=== PATIENT | male | born 1970 | race Caucasian/White ===

== ENCOUNTER 2017-04-28 15:25 | Emergency (ER) | payer MEDICARE ==
[2017-04-28] MEDS ORDERED: Lidocaine 1% w/Epinephrine 1:100K 20 ML VIAL ONE (15:50)
[2017-04-28] MEDS ORDERED: Lorazepam 1 MG TAB ONE ×2 (16:19→19:34)
[2017-04-28] MEDS ORDERED: Bacitracin Zinc 1 Packet ONE (16:26)
[2017-04-28 16:46] LABS: #Basophils 0.1 thou/uL (0.0-0.2); #Eosinphils 0.1 thou/uL (0.0-0.7); #Lymphocytes 2.9 thou/uL (1.20-3.40); #Monocytes 0.6 thou/uL (0.11-0.59); #Neutrophils 7.5 thou/uL (1.40-6.50); %Basophils 0.8 % (0.0-1.0); %Eosinophils 0.7 % (0.0-10.0); %Lymphocytes 25.9 % (21.0-51.0); %Neutrophils 67.5 % (42.0-75.0); Hemoglobin 15.4 g/dL (14.0-18.0); Mean Corpuscular HGB CONC 34.3 g/dL (32.0-36.0); Mean Corpuscular Volume 99.1 fl (80.0-94.0); Mean Platelet Volume 6.7 fL (7.4-10.4); Platelet Count 431 thou/uL (130-400); RBC Distribution Width 11.9 % (11.5-14.5); Red Blood Cell (RBC) Count 4.52 mill/uL (4.70-6.10); White Blood Cell (WBC) Count 11.1 thou/uL (4.8-10.8)
[2017-04-28 16:48] LABS: Bilirubin Negative (Negative); Blood, Urine Negative (Negative); Clarity CLEAR (Clear); Glucose, Urine (Dipstick) Negative (Negative); Leukocyte Negative (Negative); Nitrite Negative (Negative); Protein, Urine (Dipstick) Negative (Neg-Trace); Urobilinogen 0.2 mg/dL (0.2-1.0)
[2017-04-28 16:59] LABS: Amphetamine Not Detected (NotDetected); Barbiturates Screen Not Detected (NotDetected); Benzodiazepine Screen Detected (NotDetected); Cocaine Metabolite Screen Not Detected (NotDetected); Medtox Control Line Valid? VALID (VALID); Medtox Reader # READER 4; Methadone Not Detected (NotDetected); Methamphetamine Not Detected (NotDetected); Opiate Screen Detected (NotDetected); Oxycodone Screen Not Detected (NotDetected); Phencyclidine (PCP) Not Detected (NotDetected); THC/Cannabinoid Screen Not Detected (NotDetected); Tricyclic Screen Not Detected (NotDetected)
[2017-04-28 17:06] LABS: Acetaminophen Less than 6.0 mcg/mL (10.0-30.0); Alcohol 181 mg/dL (Less than 10); Salicylate Less than 8.0 mg/dL (15.0-30.0)
[2017-04-28 17:07] LABS: ALT (SGPT) 18 U/L (8-55); AST (SGOT) 22 U/L (5-34); Albumin 4.9 g/dL (3.5-5.0); Alkaline Phosphatase 60 U/L (40-150); Anion Gap 15 mmol/L (10-20); BUN (Urea Nitrogen) 15 mg/dL (8.9-20.6); Bilirubin, Total 0.2 mg/dL (0.2-1.2); Calc. Creatinine Clearance 0 mL/min (70-130); Calcium 10.4 mg/dL (7.8-10.44); Carbon Dioxide 23 mmol/L (22-29); Chloride 106 mmol/L (98-107); Estimated GFR-MDRD Greater than 90; Globulin 3.4 g/dL (2.4-3.5); Glucose 162 mg/dL (70-105); Potassium 4.3 mmol/L (3.5-5.1); Protein, Total 8.3 g/dL (6.0-8.3); Sodium 140 mmol/L (136-145)
[2017-04-28] MEDS ORDERED: OLANZapine 5 MG TAB PO SCH (19:45)
[2017-04-28] MEDS ORDERED: Aspirin 325 MG TAB ONE (21:00)
== END 2017-04-29 02:00 | disposition home or self-care (01) ==
LOC: ERS 15:25
DX: S61.512A Laceration without foreign body of left wrist, initial encounter (principal); F10.129 Alcohol abuse with intoxication, unspecified; R45.851 Suicidal ideations; Z79.899 Other long term (current) drug therapy; W29.3XXA Contact with powered garden and outdoor hand tools and machinery, initial encounter
CPT/HCPCS: 12002; 36415; 80053; 80306; 80307; 81003; 85025; J2001

== ENCOUNTER 2018-01-06 06:38 | Emergency (ER) | payer MEDICARE ==
[2018-01-06 08:47] LABS: Bilirubin Negative (Negative); Blood, Urine Negative (Negative); Clarity CLEAR (Clear); Glucose, Urine (Dipstick) Negative (Negative); Leukocyte Negative (Negative); Nitrite Negative (Negative); Protein, Urine (Dipstick) Negative (Neg-Trace); Specific Gravity, Urine 1.013 (1.002-1.036); Urobilinogen 0.2 mg/dL (0.2-1.0); pH, Urine 6.5 (5.0-9.0)
[2018-01-06 08:55] LABS: Medtox Reader # READER 1
[2018-01-06 09:02] LABS: Amphetamine Not Detected (NotDetected); Barbiturates Screen Not Detected (NotDetected); Benzodiazepine Screen Detected (NotDetected); Cocaine Metabolite Screen Not Detected (NotDetected); Medtox Control Line Valid? VALID (VALID); Methadone Not Detected (NotDetected); Methamphetamine Not Detected (NotDetected); Opiate Screen Detected (NotDetected); Oxycodone Screen Not Detected (NotDetected); Phencyclidine (PCP) Not Detected (NotDetected); THC/Cannabinoid Screen Not Detected (NotDetected); Tricyclic Screen Not Detected (NotDetected)
[2018-01-06 09:19] LABS: #Basophils 0.1 thou/uL (0.0-0.2); #Eosinphils 0.3 thou/uL (0.0-0.7); #Lymphocytes 2.5 thou/uL (1.20-3.40); #Neutrophils 9.3 thou/uL (1.40-6.50); %Basophils 0.7 % (0.0-1.0); %Eosinophils 2.4 % (0.0-10.0); %Lymphocytes 18.7 % (21.0-51.0); %Monocytes 7.5 % (0.0-10.0); %Neutrophils 70.7 % (42.0-75.0); Hemoglobin 13.9 g/dL (14.0-18.0); Mean Corpuscular HGB CONC 34.3 g/dL (32.0-36.0); Mean Corpuscular Hemoglobin 33.5 pg (27.0-31.0); Mean Corpuscular Volume 97.6 fL (78.0-98.0); Mean Platelet Volume 7.2 fL (7.4-10.4); Platelet Count 426 thou/uL (130-400); RBC Distribution Width 11.3 % (11.5-14.5); Red Blood Cell (RBC) Count 4.15 mill/uL (4.70-6.10); White Blood Cell (WBC) Count 13.2 thou/uL (4.8-10.8)
[2018-01-06 09:38] LABS: ALT (SGPT) 18 U/L (8-55); AST (SGOT) 19 U/L (5-34); Albumin 4.5 g/dL (3.5-5.0); Alcohol Less than 10 mg/dL (Less than 10); Alkaline Phosphatase 45 U/L (40-150); Anion Gap 15 mmol/L (10-20); BUN (Urea Nitrogen) 21 mg/dL (8.9-20.6); Bilirubin, Total 0.2 mg/dL (0.2-1.2); CK (CPK) 142 U/L (30-200); Calc. Creatinine Clearance 0 mL/min (70-130); Calcium 9.4 mg/dL (7.8-10.44); Carbon Dioxide 22 mmol/L (22-29); Chloride 106 mmol/L (98-107); Estimated GFR-MDRD 80; Glucose 137 mg/dL (70-105); Potassium 3.9 mmol/L (3.5-5.1); Protein, Total 7.5 g/dL (6.0-8.3); Sodium 139 mmol/L (136-145)
[2018-01-06 09:41] LABS: Acetaminophen Less than 6.0 mcg/mL (10.0-30.0); Alcohol Less than 10 mg/dL (Less than 10); Salicylate Less than 8.0 mg/dL (15.0-30.0)
--- NOTE | 2018-01-13 11:18 | EKG ---
Test Reason : Blood Pressure : / mmHG Vent. Rate : 113 BPM Atrial Rate : 113 BPM P-R Int : 122 ms QRS Dur : 088 ms QT Int : 324 ms P-R-T Axes : 025 003 031 degrees QTc Int : 444 ms Sinus tachycardia Moderate voltage criteria for LVH, may be normal variant Borderline ECG No ST elevation/NE Confirmed by PEPE GARCIA M.D. ([id number]), makeup editor JONI CAAL ([id number] on 01/13/2018 11:18:04 AM Referred By: Confirmed By:PEPE GARCIA M.D.
== END 2018-01-06 10:26 | disposition home or self-care (01) ==
LOC: ERS 06:38
DX: F19.10 Other psychoactive substance abuse, uncomplicated (principal)
CPT/HCPCS: 36415; 80053; 80306; 80307; 81003; 82550; 84443; 85025; 93005; 96360

== ENCOUNTER 2019-02-24 14:36 | Emergency (ER) | payer MEDICARE ==
[2019-02-24 15:20] LABS: #Basophils 0.1 thou/uL (0.0-0.2); #Lymphocytes 1.2 thou/uL (1.20-3.40); #Monocytes 0.6 thou/uL (0.11-0.59); #Neutrophils 7.8 thou/uL (1.40-6.50); %Basophils 0.5 % (0.0-1.0); %Eosinophils 0.4 % (0.0-10.0); %Lymphocytes 12.4 % (21.0-51.0); %Monocytes 5.9 % (0.0-10.0); %Neutrophils 80.8 % (42.0-75.0); Hemoglobin 15.8 g/dL (14.0-18.0); Mean Corpuscular Hemoglobin 33.3 pg (27.0-31.0); Mean Corpuscular Volume 95.3 fL (78.0-98.0); Mean Platelet Volume 7.6 fL (7.4-10.4); Platelet Count 383 thou/uL (130-400); RBC Distribution Width 11.3 % (11.5-14.5); Red Blood Cell (RBC) Count 4.73 mill/uL (4.70-6.10); White Blood Cell (WBC) Count 9.7 thou/uL (4.8-10.8)
--- NOTE | 2019-02-24 15:26 | CT ---
CT Brain WO Con History: Seizure Comparison: None. Findings: No acute hemorrhage or infarct. No midline shift or mass effect. Ventricular size and extra -axial CSF spaces are normal. Calvarium is intact. Paranasal sinuses and mastoids are clear. Impression: No acute intracranial abnormality. Left posterior parietal soft tissue contusion.
[2019-02-24 15:40] LABS: ALT (SGPT) 33 U/L (8-55); AST (SGOT) 38 U/L (5-34); Alkaline Phosphatase 62 U/L (40-110); Anion Gap 17 mmol/L (10-20); BUN (Urea Nitrogen) 11 mg/dL (8.4-25.7); Bilirubin, Total 0.7 mg/dL (0.2-1.2); Calc. Creatinine Clearance 0 mL/min (70-130); Calcium 10.3 mg/dL (7.8-10.44); Carbon Dioxide 23 mmol/L (22-29); Chloride 100 mmol/L (98-107); Estimated GFR-MDRD 89; Globulin 2.9 g/dL (2.4-3.5); Glucose 267 mg/dL (70-105); Potassium 3.7 mmol/L (3.5-5.1); Protein, Total 7.9 g/dL (6.0-8.3); Sodium 136 mmol/L (136-145)
[2019-02-24] MEDS ORDERED: Acetaminophen 500 MG TAB ONE (15:57)
[2019-02-24] MEDS ORDERED: Ibuprofen 200 MG TAB ONE (16:18)
[2019-02-24 16:22] LABS: Bacteria/HPF None Seen HPF (None Seen); Bilirubin Negative (Negative); Blood, Urine Negative (Negative); Clarity Clear (Clear); Glucose, Urine (Dipstick) >=1000 mg/dL (Negative); Leukocyte Negative Leu/uL (Negative); Nitrite Negative (Negative); Protein, Urine (Dipstick) 300 mg/dL (Neg-Trace); RBC/HPF 0-3 HPF (0-3); Squamous Epithelial 0-3 HPF (0-3); Urobilinogen Normal mg/dL (Less than 2)
[2019-02-24 16:27] LABS: Mucous/LPF 1+ LPF (<2+); Sperm/HPF 4+ HPF (None Seen)
[2019-02-24 16:33] LABS: Amphetamine Not Detected (NotDetected); Barbiturates Screen Not Detected (NotDetected); Benzodiazepine Screen Detected (NotDetected); Cocaine Metabolite Screen Not Detected (NotDetected); Medtox Control Line Valid? VALID (VALID); Medtox Reader # READER 1; Methadone Not Detected (NotDetected); Methamphetamine Not Detected (NotDetected); Opiate Screen Not Detected (NotDetected); Oxycodone Screen Not Detected (NotDetected); Phencyclidine (PCP) Not Detected (NotDetected); THC/Cannabinoid Screen Detected (NotDetected); Tricyclic Screen Not Detected (NotDetected)
== END 2019-02-24 16:41 ==
LOC: ERS 14:36
DX: R56.9 Unspecified convulsions (principal); I10 Essential (primary) hypertension; F32.9 Major depressive disorder, single episode, unspecified; F17.210 Nicotine dependence, cigarettes, uncomplicated; Z79.899 Other long term (current) drug therapy
CPT/HCPCS: 36415; 70450; 80053; 80306; 81003; 81015; 85025; 93005; 94760

== ENCOUNTER 2020-10-30 16:25 | Emergency (ER) | payer MEDICARE ==
[~2020-10-30 16:25] MED LIST: Iopamidol-370 76% 500 ML 1 ML ONE
[2020-10-30 16:55] LABS: #Basophils 0.1 thou/uL (0.0-0.2); #Eosinphils 0.2 thou/uL (0.0-0.7); #Lymphocytes 2.5 thou/uL (1.20-3.40); #Monocytes 0.7 thou/uL (0.11-0.59); #Neutrophils 5.4 thou/uL (1.40-6.50); %Basophils 1.2 % (0.0-1.0); %Lymphocytes 27.8 % (21.0-51.0); %Monocytes 8.3 % (0.0-10.0); %Neutrophils 60.8 % (42.0-75.0); Hemoglobin 15.5 g/dL (14.0-18.0); Mean Corpuscular HGB CONC 35.2 g/dL (32.0-36.0); Mean Corpuscular Hemoglobin 34.9 pg (27.0-31.0); Mean Corpuscular Volume 99.3 fL (78.0-98.0); Mean Platelet Volume 7.3 fL (7.4-10.4); Platelet Count 421 thou/uL (130-400); RBC Distribution Width 10.9 % (11.5-14.5); Red Blood Cell (RBC) Count 4.45 mill/uL (4.70-6.10); White Blood Cell (WBC) Count 8.8 thou/uL (4.8-10.8)
[2020-10-30 17:13] LABS: ALT (SGPT) 23 U/L (8-55); AST (SGOT) 24 U/L (5-34); Albumin 4.5 g/dL (3.5-5.0); Alkaline Phosphatase 84 U/L (40-110); Anion Gap 16 mmol/L (10-20); BUN (Urea Nitrogen) 9 mg/dL (8.4-25.7); Bilirubin, Total 0.3 mg/dL (0.2-1.2); Calc. Creatinine Clearance 0 mL/min (70-130); Calcium 9.6 mg/dL (7.8-10.44); Carbon Dioxide 24 mmol/L (22-29); Chloride 99 mmol/L (98-107); Globulin 3.1 g/dL (2.4-3.5); Glucose 264 mg/dL (70-105); Lipase 17 U/L (8-78); Potassium 3.1 mmol/L (3.5-5.1); Protein, Total 7.6 g/dL (6.0-8.3); Sodium 136 mmol/L (136-145)
[2020-10-30] MEDS ORDERED: Ketorolac Tromethamine 30 MG/ML VIAL ONE (17:29)
== END 2020-10-30 19:30 | disposition home or self-care (01) ==
LOC: ERS 16:25
DX: S62.522A Displaced fracture of distal phalanx of left thumb, initial encounter for closed fracture (principal); S00.03XA Contusion of scalp, initial encounter; M54.9 Dorsalgia, unspecified; I10 Essential (primary) hypertension; F17.210 Nicotine dependence, cigarettes, uncomplicated; R07.9 Chest pain, unspecified; R10.9 Unspecified abdominal pain; Z79.899 Other long term (current) drug therapy; W17.89XA Other fall from one level to another, initial encounter
CPT/HCPCS: 70450; 71260; 72125; 74177; 80053; 83690; 85025; 93005; 96374; J1885; Q9967

== ENCOUNTER 2021-06-14 15:44 | Emergency (ER) | payer MEDICARE ==
[2021-06-14] MEDS ORDERED: Silver Sulfadiazine 50 GM TUBE ONE (16:18)
[2021-06-14] MEDS ORDERED: Boostrix 0.5 ML (Tdap) VIAL ONE (16:33)
[2021-06-14] MEDS ORDERED: Ketorolac Tromethamine 30 MG/ML VIAL ONE (16:33)
== END 2021-06-14 16:51 | disposition home or self-care (01) ==
LOC: ERS 15:44
DX: T25.221A Burn of second degree of right foot, initial encounter (principal); I10 Essential (primary) hypertension; F17.210 Nicotine dependence, cigarettes, uncomplicated; Z23 Encounter for immunization; X08.8XXA Exposure to other specified smoke, fire and flames, initial encounter
CPT/HCPCS: 16020; 90471; 90715; 96372; J1885

== ENCOUNTER 2022-07-15 22:19 | Emergency (ER) | payer MEDICARE ==
[2022-07-15 23:28] LABS: #Basophils 0.1 thou/uL (0.0-0.2); #Eosinphils 0.1 thou/uL (0.0-0.7); #Lymphocytes 2.7 thou/uL (1.20-3.40); #Monocytes 0.4 thou/uL (0.11-0.59); #Neutrophils 3.6 thou/uL (1.40-6.50); %Basophils 1.1 % (0.0-1.0); %Eosinophils 1.9 % (0.0-10.0); %Lymphocytes 38.7 % (21.0-51.0); %Monocytes 5.6 % (0.0-10.0); %Neutrophils 52.7 % (42.0-75.0); Hemoglobin 14.5 g/dL (14.0-18.0); Mean Corpuscular HGB CONC 34.9 g/dL (32.0-36.0); Mean Corpuscular Hemoglobin 34.3 pg (27.0-31.0); Mean Corpuscular Volume 98.1 fl (78.0-98.0); Platelet Count 411 10x3/uL (130-400); Red Blood Cell (RBC) Count 4.23 mill/uL (4.70-6.10); White Blood Cell (WBC) Count 6.9 10x3/uL (4.8-10.8)
[2022-07-15 23:44] LABS: Acetaminophen Less than 10.0 mcg/mL (10.0-30.0); Alcohol 227 mg/dL (Less than 10); Salicylate Less than 8.0 mg/dL (15.0-30.0)
[2022-07-15 23:46] LABS: ALT (SGPT) 36 U/L (8-55); AST (SGOT) 52 U/L (5-34); Albumin 4.3 g/dL (3.5-5.0); Alkaline Phosphatase 84 U/L (40-110); Anion Gap 19 mmol/L (10-20); BUN (Urea Nitrogen) 8 mg/dL (8.4-25.7); Bilirubin, Total 0.2 mg/dL (0.2-1.2); CK (CPK) 82 U/L (30-200); Calc. Creatinine Clearance 0 mL/min (70-130); Calcium 9.5 mg/dL (7.8-10.44); Carbon Dioxide 20 mmol/L (22-29); Chloride 106 mmol/L (98-107); Estimated GFR 106; Globulin 3.2 g/dL (2.4-3.5); Glucose 205 mg/dL (70-105); Potassium 3.6 mmol/L (3.5-5.1); Protein, Total 7.5 g/dL (6.0-8.3); Sodium 141 mmol/L (136-145)
[2022-07-16 00:08] LABS: Bilirubin Negative (Negative); Blood, Urine Negative (Negative); Clarity Clear (Clear); Glucose, Urine (Dipstick) Normal (Negative); Ketone, Urine Negative (Negative); Leukocyte Negative Leu/uL (Negative); Nitrite Negative (Negative); Protein, Urine (Dipstick) 50 mg/dL (Neg-Trace); RBC/HPF 0-3 HPF (0-3); Specific Gravity, Urine 1.008 (1.002-1.036); Squamous Epithelial None Seen HPF (0-3); Urobilinogen Normal mg/dL (Less than 2); WBC/HPF 0-3 HPF (0-3)
[2022-07-16 00:15] LABS: Bacteria/HPF 1+ HPF (None Seen)
[2022-07-16 00:16] LABS: Amphetamine Not Detected (NotDetected); Barbiturates Screen Not Detected (NotDetected); Benzodiazepine Screen Detected (NotDetected); Cocaine Metabolite Screen Not Detected (NotDetected); Methadone Not Detected (NotDetected); Methamphetamine Not Detected (NotDetected); Opiate Screen Detected (NotDetected); Oxycodone Screen Not Detected (NotDetected); Phencyclidine (PCP) Not Detected (NotDetected); THC/Cannabinoid Screen Detected (NotDetected); Tricyclic Screen Not Detected (NotDetected)
[2022-07-16] MEDS ORDERED: Nicotine 14 MG PATCH ONE (00:28)
[2022-07-16] MEDS ORDERED: Ziprasidone 20 MG CAP ONE (00:28)
== END 2022-07-16 10:32 | disposition home or self-care (01) ==
LOC: ERS 22:19
DX: F10.129 Alcohol abuse with intoxication, unspecified (principal); R45.851 Suicidal ideations; I10 Essential (primary) hypertension; F17.210 Nicotine dependence, cigarettes, uncomplicated; Y90.7 Blood alcohol level of 200-239 mg/100 ml
CPT/HCPCS: 36415; 80053; 80306; 80307; 81003; 81015; 82550; 84443; 85025; 99285

== ENCOUNTER 2022-08-17 17:44 | Emergency (ER) | payer MEDICARE | END 2022-08-17 20:15 | disposition home or self-care (01) | LOC: ERS 17:44 | DX: S22.088A Other fracture of T11-T12 vertebra, initial encounter for closed fracture (principal); S32.018A Other fracture of first lumbar vertebra, initial encounter for closed fracture; W19.XXXA Unspecified fall, initial encounter; I10 Essential (primary) hypertension; F17.210 Nicotine dependence, cigarettes, uncomplicated | CPT/HCPCS: 71046; 72128; 72131 ==

== ENCOUNTER 2022-11-30 18:17 | Observation (INO) | payer MEDICARE ==
[2022-11-30 19:36] LABS: #Eosinphils 0.1 thou/uL (0.0-0.7); #Neutrophils 11.7 thou/uL (1.40-6.50); %Basophils 0.3 % (0.0-1.0); %Eosinophils 0.6 % (0.0-10.0); %Lymphocytes 13.4 % (21.0-51.0); %Monocytes 6.5 % (0.0-10.0); %Neutrophils 78.4 % (42.0-75.0); Hematocrit 35.5 % (42.0-52.0); Hemoglobin 12.1 g/dL (14.0-18.0); Mean Corpuscular HGB CONC 34.1 g/dL (32.0-36.0); Mean Corpuscular Volume 99.7 fl (78.0-98.0); Mean Platelet Volume 9.5 fL (7.4-10.4); Platelet Count 329 10x3/uL (130-400); RBC Distribution Width 13.2 % (11.5-14.5); Red Blood Cell (RBC) Count 3.56 mill/uL (4.70-6.10); White Blood Cell (WBC) Count 14.9 10x3/uL (4.8-10.8)
[2022-11-30 19:52] LABS: ALT (SGPT) 12 U/L (8-55); AST (SGOT) 15 U/L (5-34); Acetaminophen Less than 10 mcg/mL (10.0-30.0); Albumin 3.3 g/dL (3.5-5.0); Alcohol 175.7 mg/dL (Less than 10); Alkaline Phosphatase 48 U/L (40-110); Anion Gap 17 mmol/L (10-20); BUN (Urea Nitrogen) 14 mg/dL (8.4-25.7); Bilirubin, Total Less than 0.2 mg/dL (0.2-1.2); CK (CPK) 66 U/L (30-200); Calc. Creatinine Clearance 0 mL/min (70-130); Calcium 7.8 mg/dL (7.8-10.44); Carbon Dioxide 18 mmol/L (22-29); Chloride 107 mmol/L (98-107); Estimated GFR 42; Globulin 1.9 g/dL (2.4-3.5); Glucose 183 mg/dL (70-105); Magnesium 1.4 mg/dL (1.6-2.6); Potassium 3.9 mmol/L (3.5-5.1); Protein, Total 5.2 g/dL (6.0-8.3); Salicylate Less than 8.0 mg/dL (15.0-30.0); Sodium 138 mmol/L (136-145)
[2022-11-30] MEDS ORDERED: Magnesium 2 GM/50 ML BAG (IN WATER) ONE (20:14)
[2022-11-30] MEDS ORDERED: Dextrose 50% Abboject 50 ML SYRINGE SLOW IVP PRN (21:57)
[2022-11-30] MEDS ORDERED: HumaLOG 300 UNITS/3 ML VIAL SC PRN ×2 (21:57)
[2022-11-30] MEDS ORDERED: Ondansetron ODT 4 MG TAB PO PRN (21:57)
[2022-11-30] MEDS ORDERED: Glucagon 1 MG/ML KIT IM PRN (21:57)
[2022-11-30] MEDS ORDERED: Dextrose 5% in Water 1,000 ML IV PRN (21:57)
[2022-11-30] MEDS ORDERED: Ondansetron PF 4 MG/2 ML Vial IVP PRN (21:57)
[2022-11-30] MEDS ORDERED: Nicotine 21 MG PATCH TD PRN (21:57)
[2022-11-30] MEDS ORDERED: Lactated Ringer's 1,000 ML IV SCH (22:00)
[2022-11-30 22:42] LABS: Lactic Acid 3.3 mmol/L (0.5-2.2)
[2022-11-30 22:51] LABS: Troponin I Less than 0.010 ng/mL (< 0.028)
[2022-12-01 01:38] VITALS: BMI 30.1
[2022-12-01] MEDS: Acetaminophen 325 MG TAB PO PRN ×3 (01:57→22:02)
[2022-12-01] MEDS: Lactated Ringer's 1,000 ML IV SCH ×3 (01:57→19:02)
[2022-12-01 02:05] LABS: Troponin I Less than 0.010 ng/mL (< 0.028)
[2022-12-01 05:13] LABS: #Eosinphils 0.1 thou/uL (0.0-0.7); #Monocytes 0.8 thou/uL (0.11-0.59); #Neutrophils 7.4 thou/uL (1.40-6.50); %Basophils 0.4 % (0.0-1.0); %Lymphocytes 20.7 % (21.0-51.0); %Monocytes 7.2 % (0.0-10.0); %Neutrophils 70.3 % (42.0-75.0); Hematocrit 37.7 % (42.0-52.0); Hemoglobin 12.7 g/dL (14.0-18.0); Mean Corpuscular HGB CONC 33.7 g/dL (32.0-36.0); Mean Corpuscular Volume 97.9 fl (78.0-98.0); Mean Platelet Volume 9.4 fL (7.4-10.4); Platelet Count 344 10x3/uL (130-400); RBC Distribution Width 13.2 % (11.5-14.5); Red Blood Cell (RBC) Count 3.85 mill/uL (4.70-6.10); White Blood Cell (WBC) Count 10.4 10x3/uL (4.8-10.8)
[2022-12-01 05:43] LABS: Lactic Acid 1.5 mmol/L (0.5-2.2)
[2022-12-01 06:01] LABS: ALT (SGPT) 13 U/L (8-55); AST (SGOT) 19 U/L (5-34); Albumin 3.7 g/dL (3.5-5.0); Alkaline Phosphatase 59 U/L (40-110); Anion Gap 12 mmol/L (10-20); BUN (Urea Nitrogen) 10 mg/dL (8.4-25.7); Bilirubin, Total 0.4 mg/dL (0.2-1.2); Calc. Creatinine Clearance 138 mL/min (70-130); Calcium 8.5 mg/dL (7.8-10.44); Carbon Dioxide 20 mmol/L (22-29); Chloride 107 mmol/L (98-107); Estimated GFR 103; Globulin 2.1 g/dL (2.4-3.5); Glucose 165 mg/dL (70-105); Magnesium 1.5 mg/dL (1.6-2.6); Phosphorus 2.7 mg/dL (2.3-4.7); Potassium 4.4 mmol/L (3.5-5.1); Protein, Total 5.8 g/dL (6.0-8.3); Sodium 135 mmol/L (136-145)
[2022-12-01 08:40] LABS: Amphetamine Not Detected (NotDetected); Barbiturates Screen Not Detected (NotDetected); Benzodiazepine Screen Not Detected (NotDetected); Cocaine Metabolite Screen Not Detected (NotDetected); Methadone Not Detected (NotDetected); Methamphetamine Not Detected (NotDetected); Opiate Screen Not Detected (NotDetected); Oxycodone Screen Not Detected (NotDetected); Phencyclidine (PCP) Not Detected (NotDetected); THC/Cannabinoid Screen Not Detected (NotDetected); Tricyclic Screen Not Detected (NotDetected)
[2022-12-01] MEDS ORDERED: Magnesium 2 GM/50 ML(in water) 2 GM in Premix Bag 1 BAG IVPB SCH (11:00)
[2022-12-01 12:06] VITALS: TEMP 98.3
[2022-12-01 16:35] VITALS: BP 140/85
== END 2022-12-01 22:20 | disposition home or self-care (01) ==
LOC: ERS 18:17 → 2SE 21:08
PROVIDERS: ADMIT Student in an Organized Health Care Education/Training Program; ATTEND Family Medicine
DX: R55 Syncope and collapse (principal); F10.220 Alcohol dependence with intoxication, uncomplicated; N17.9 Acute kidney failure, unspecified; E83.42 Hypomagnesemia; E11.9 Type 2 diabetes mellitus without complications; I10 Essential (primary) hypertension; F17.210 Nicotine dependence, cigarettes, uncomplicated; D72.829 Elevated white blood cell count, unspecified; M19.90 Unspecified osteoarthritis, unspecified site; E78.5 Hyperlipidemia, unspecified; Z79.82 Long term (current) use of aspirin; Z79.899 Other long term (current) drug therapy; Y90.6 Blood alcohol level of 120-199 mg/100 ml
CPT/HCPCS: 70450; 71045; 72125; 80053; 80306; 80307; 82550; 82962; 83605 ×2; 83735 ×2; 84100; 84484 ×3; 85025; 93005; 93880; 96361; 96374; 96376; 99285; G0378 ×2; 36415; 36416; 84443; J3475; J7120

== ENCOUNTER 2022-12-10 19:31 | Emergency (ER) | payer MEDICARE ==
[2022-12-10] MEDS ORDERED: Ipratropium/Albuterol 3 ML NEB ONE (19:39)
[2022-12-10 19:48] LABS: #Basophils 0.2 thou/uL (0.0-0.2); #Eosinphils 0.2 thou/uL (0.0-0.7); #Monocytes 0.9 thou/uL (0.11-0.59); #Neutrophils 5.1 thou/uL (1.40-6.50); %Basophils 1.9 % (0.0-1.0); %Eosinophils 1.6 % (0.0-10.0); %Lymphocytes 30.1 % (21.0-51.0); %Monocytes 9.7 % (0.0-10.0); %Neutrophils 54.9 % (42.0-75.0); Hematocrit 38.7 % (42.0-52.0); Hemoglobin 13.3 g/dL (14.0-18.0); Mean Corpuscular HGB CONC 34.4 g/dL (32.0-36.0); Mean Corpuscular Hemoglobin 33.7 pg (27.0-31.0); Mean Platelet Volume 9.5 fL (7.4-10.4); Platelet Count 392 10x3/uL (130-400); RBC Distribution Width 13.1 % (11.5-14.5); Red Blood Cell (RBC) Count 3.95 mill/uL (4.70-6.10); White Blood Cell (WBC) Count 9.3 10x3/uL (4.8-10.8)
[2022-12-10 20:09] LABS: ALT (SGPT) 12 U/L (8-55); AST (SGOT) 20 U/L (5-34); Albumin 3.5 g/dL (3.5-5.0); Alkaline Phosphatase 70 U/L (40-110); Anion Gap 17 mmol/L (10-20); BUN (Urea Nitrogen) 53 mg/dL (8.4-25.7); Bilirubin, Total 0.2 mg/dL (0.2-1.2); Calc. Creatinine Clearance 0 mL/min (70-130); Carbon Dioxide 16 mmol/L (22-29); Chloride 107 mmol/L (98-107); Estimated GFR 21; Globulin 2.6 g/dL (2.4-3.5); Glucose 158 mg/dL (70-105); Potassium 4.5 mmol/L (3.5-5.1); Protein, Total 6.1 g/dL (6.0-8.3); Sodium 135 mmol/L (136-145)
[2022-12-10 20:14] LABS: Troponin I Less than 0.010 ng/mL (< 0.028)
[2022-12-10 20:15] LABS: Actual Bicarbonate (HCO3a) 15.5 mEq/L (22-28); Base Excess (BEa) -10.6 mEq/L (-2.0 to +3.0); CO2 Tension 35.2 mmHg (35.0-45.0); Calcium, Ionized (arterial) 1.16 mmol/L (1.12-1.30); Carboxyhemoglobin (COHb) 3.2 gm% (0.0-3.0); Hematocrit-ABG 39 % (42.0-52.0); Hemoglobin (Hb) 13.4 g/dL (14.0-18.0); O2 Tension (PaO2), arterial 104.7 mmHg (80.0-100.0); Potassium - ABG Lab 3.99 mmol/L (3.70-5.30); pH, Arterial 7.261 (7.35-7.45)
[2022-12-10 20:16] LABS: Puncture Site RR
[2022-12-10 22:51] LABS: Lactic Acid 1.4 mmol/L (0.5-2.2)
== END 2022-12-10 23:02 | disposition left against medical advice (07) ==
LOC: ERS 19:31
DX: S12.400A Unspecified displaced fracture of fifth cervical vertebra, initial encounter for closed fracture (principal); S12.500A Unspecified displaced fracture of sixth cervical vertebra, initial encounter for closed fracture; N17.9 Acute kidney failure, unspecified; I10 Essential (primary) hypertension; I61.9 Nontraumatic intracerebral hemorrhage, unspecified; F17.210 Nicotine dependence, cigarettes, uncomplicated; Z79.899 Other long term (current) drug therapy
CPT/HCPCS: 36415; 70450; 71045; 71250; 72125; 74177; 80053; 82805; 83605; 84484; 85025; 87040; 93005; 94640; 96360; 96361; 96365; 96366; J7620